=== PATIENT | male | born 1995 | race Caucasian/White ===

== ENCOUNTER 2017-11-23 05:32 | Emergency (ER) | payer SELFPAY ==
[2017-11-23] MEDS ORDERED: LIDOCAINE 1%/EPINEPHRINE INJ 20 ML VIAL INJ ONE (06:01)
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
[2017-11-23 07:33] VITALS: BP 145/75
== END 2017-11-23 07:33 | disposition home or self-care (01) ==
LOC: ER 05:32
PROC: 0HQ1XZZ Repair Face Skin, External Approach (ICD-10-PCS; principal; 2017-11-23)
DX: S01.81XA Laceration without foreign body of other part of head, initial encounter (principal); S61.215A Laceration without foreign body of left ring finger without damage to nail, initial encounter; X99.8XXA Assault by other sharp object, initial encounter; F17.200 Nicotine dependence, unspecified, uncomplicated
CPT/HCPCS: 99283; 12011; J3490